=== PATIENT | female | born 1985 | race Caucasian/White ===

== ENCOUNTER → 2017-02-05 | Outpatient (CLI) | payer BC ==
--- NOTE | 2017-02-05 16:07 | XR ---
EXAMINATION TYPE: XR finger RT DATE OF EXAM ORDERED: 02/05/2017 HISTORY: possible foreign body S60.458. COMPARISON: None. FINDINGS: There is soft tissue swelling adjacent to the PIP joint of the right long finger. No fract ure, dislocation or radiopaque foreign body is seen. IMPRESSION: SOFT TISSUE SWELLING DESCRIBED.
== END | disposition home or self-care (01) ==
LOC: RADXRMAIN 15:43
PROVIDERS: ATTEND Family Medicine
DX: R22.31 Localized swelling, mass and lump, right upper limb (principal)